=== PATIENT | male | born 1985 | race Hispanic/Latino ===

== ENCOUNTER 2017-01-09 19:18 | Emergency (ER) | payer OTHER, SELFPAY ==
[2017-01-09] MEDS ORDERED: Ondansetron HCl/PF 4 MG/2 ML Vial ONE (21:23)
[2017-01-09 21:24] LABS: #Eosinphils 0.2 thou/uL (0.0-0.7); #Lymphocytes 1.6 thou/uL (1.20-3.40); #Monocytes 0.5 thou/uL (0.11-0.59); #Neutrophils 11.8 thou/uL (1.40-6.50); %Basophils 0.2 % (0.0-1.0); %Eosinophils 1.1 % (0.0-10.0); %Lymphocytes 11.5 % (21.0-51.0); %Monocytes 3.4 % (0.0-10.0); Hematocrit 53.8 % (42.0-52.0); Mean Platelet Volume 7.3 fL (7.4-10.4); Red Blood Cell (RBC) Count 5.85 mill/uL (4.70-6.10)
[2017-01-09 21:31] LABS: Lactic Acid - Sepsis 1.4 mmol/L (0.5-2.2)
[2017-01-09 21:35] LABS: ALT (SGPT) 63 U/L (8-55); AST (SGOT) 32 U/L (5-34); Alkaline Phosphatase 67 U/L (40-150); Anion Gap 18 mmol/L (10-20); BUN (Urea Nitrogen) 16 mg/dL (8.9-20.6); Bilirubin, Total 0.8 mg/dL (0.2-1.2); Calc. Creatinine Clearance 0 mL/min (70-130); Calcium 9.8 mg/dL (7.8-10.44); Carbon Dioxide 27 mmol/L (22-29); Chloride 102 mmol/L (98-107); Estimated GFR-MDRD 85; Globulin 3.4 g/dL (2.4-3.5); Lipase 37 U/L (8-78)
--- NOTE | 2017-01-09 22:57 | ULT ---
GALLBLADDER ULTRASOUND: 01/09/17 HISTORY: Right upper quadrant pain. Nausea, vomiting. Gallbladder has a normal sonographic appearance. No evidence of gallstone identified. Common duct is normal caliber. The liver is echogenic consistent with fatty infiltration. The pancreas is mostly ob scured. The right kidney is unremarkable as visualized. IMPRESSION: 1. Unremarkable gallbladder ultrasound. 2. Hepatic steatosis. POS: [facility]
[2017-01-09 23:10] LABS: Bilirubin Negative (Negative); Blood, Urine Negative (Negative); Glucose, Urine (Dipstick) Negative (Negative); Ketone, Urine Negative (Negative); Nitrite Negative (Negative); Protein, Urine (Dipstick) 30 mg/dL (Neg-Trace); Urobilinogen 0.2 mg/dL (0.2-1.0)
[2017-01-09 23:12] LABS: Bacteria/HPF None Seen HPF (None Seen); Hyaline Casts/LPF 0-3 HYALINE CAST LPF (0-3 Hyaline); RBC/HPF 0-3 HPF (0-3); Squamous Epithelial None Seen HPF (0-3); WBC/HPF None Seen HPF (0-3)
== END 2017-01-10 00:17 | disposition home or self-care (01) ==
LOC: ERS 19:18
DX: R10.11 Right upper quadrant pain (principal); R19.7 Diarrhea, unspecified; R11.2 Nausea with vomiting, unspecified; F17.210 Nicotine dependence, cigarettes, uncomplicated; Z79.899 Other long term (current) drug therapy
CPT/HCPCS: 76705; 80053; 81003; 81015; 83605; 83690; 85025; 96361; 96374; 99406; J2405